=== PATIENT | female | born 1980 | race Asian ===

== ENCOUNTER 2022-04-04 18:39 | Emergency (ER) | payer BC ==
[~2022-04-04] VITALS: Ht 165.1 cm; Wt 70.3 kg
[2022-04-04 18:54] VITALS: BP 136/79
--- NOTE | 2022-04-04 18:57 | NUR ---
SEEN AND EXAMINED BY DR SALAZAR
[2022-04-04] MEDS ORDERED: LIDOCAINE HCL/PF 1% 30 ML VIAL TP ONE (19:00)
[2022-04-04] MEDS ORDERED: TDAP [DIPH/PERTUSSIS/TET] 0.5 ML VIAL IM ONE ×2 (19:00→19:06)
[2022-04-04] MEDS ORDERED: LIDOCAINE HCL/MPF 1% 30 ML VIAL IJ ONE (19:08)
--- NOTE | 2022-04-04 19:46 | NUR ---
AT BED SIDE FOR [facility]
== END 2022-04-04 20:29 | disposition home or self-care (01) ==
LOC: ER 18:41
DX: S61.210A Laceration without foreign body of right index finger without damage to nail, initial encounter (principal); W26.0XXA Contact with knife, initial encounter; Y93.89 Activity, other specified; Y92.89 Other specified places as the place of occurrence of the external cause; Y99.8 Other external cause status
CPT/HCPCS: 99283; 12002; 90471; 90715; J3490 ×2